=== PATIENT | female | born 1985 | race Caucasian/White ===

== ENCOUNTER → 2024-05-21 13:42 | Outpatient (BNVA) | payer MEDICAID, SELFPAY | PROVIDERS: Visit Provider Nurse Practitioner Women's Health | DX: Z34.90 Encounter for supervision of normal pregnancy, unspecified, unspecified trimester (principal) | CPT/HCPCS: 80307; 84315; 87086 ==

== ENCOUNTER → 2024-05-25 14:08 | Outpatient (BNVA) | payer MEDICAID, SELFPAY | PROVIDERS: Visit Provider Nurse Practitioner Women's Health | DX: Z36.2 Encounter for other antenatal screening follow-up (principal); O09.512 Supervision of elderly primigravida, second trimester; Z3A.25 25 weeks gestation of pregnancy; O24.419 Gestational diabetes mellitus in pregnancy, unspecified control | CPT/HCPCS: 76805 ==

== ENCOUNTER → 2024-06-03 16:19 | Outpatient (BNVA) | payer MEDICAID, SELFPAY | PROVIDERS: Visit Provider Obstetrics & Gynecology | DX: O09.522 Supervision of elderly multigravida, second trimester (principal); Z01.419 Encounter for gynecological examination (general) (routine) without abnormal findings | CPT/HCPCS: 84315; 87624 ==

== ENCOUNTER → 2024-06-22 08:36 | Outpatient (BNVA) | payer MEDICAID, SELFPAY | PROVIDERS: Visit Provider Obstetrics & Gynecology | DX: O09.299 Supervision of pregnancy with other poor reproductive or obstetric history, unspecified trimester (principal); Z86.32 Personal history of gestational diabetes | CPT/HCPCS: 82950 ==

== ENCOUNTER → 2024-07-06 08:17 | Outpatient (BNVA) | payer MEDICAID, SELFPAY | PROVIDERS: Visit Provider Nurse Practitioner Women's Health | DX: O09.522 Supervision of elderly multigravida, second trimester (principal); B37.9 Candidiasis, unspecified | CPT/HCPCS: 81000; 85025; 87077; 87086; 87184 ==

== ENCOUNTER → 2024-07-15 10:00 | Outpatient (BNVA) | payer MEDICAID, SELFPAY | PROVIDERS: Visit Provider Obstetrics & Gynecology | DX: O09.513 Supervision of elderly primigravida, third trimester (principal) | CPT/HCPCS: 81000 ==

== ENCOUNTER 2024-07-29 12:30 | Outpatient (CLI) | payer MEDICAID, SELFPAY ==
[2024-07-29 12:30] VITALS: BMI 24.8
[2024-07-29 12:43] VITALS: BP 124/76; PULSE 75
[2024-07-29 12:59] VITALS: BP 120/68; PULSE 76
== END 2024-07-29 13:13 | disposition home or self-care (01) ==
LOC: OPOB 12:37 → OBGYN 12:38
PROVIDERS: Visit Provider Obstetrics & Gynecology
DX: O24.419 Gestational diabetes mellitus in pregnancy, unspecified control (principal); Z3A.00 Weeks of gestation of pregnancy not specified
CPT/HCPCS: 59025; 84315; 86850; 86900; 87086

== ENCOUNTER → 2024-08-17 11:07 | Outpatient (BNVA) | payer MEDICAID, SELFPAY | PROVIDERS: Visit Provider Nurse Practitioner Women's Health | DX: O09.513 Supervision of elderly primigravida, third trimester (principal) | CPT/HCPCS: 76816 ==

== ENCOUNTER 2024-08-17 12:03 | Outpatient (CLI) | payer MEDICAID, SELFPAY ==
[2024-08-17 12:03] VITALS: BMI 25.8
[2024-08-17 12:19] VITALS: BP 135/74; PULSE 66
[2024-08-17 12:35] VITALS: BP 126/72; PULSE 71
== END 2024-08-17 12:45 | disposition home or self-care (01) ==
LOC: OPOB 12:08 → OBGYN 12:09
PROVIDERS: Visit Provider Obstetrics & Gynecology
DX: O24.419 Gestational diabetes mellitus in pregnancy, unspecified control (principal); Z3A.00 Weeks of gestation of pregnancy not specified
CPT/HCPCS: 59025; 84315; 87081

== ENCOUNTER 2024-08-21 11:40 | Outpatient (CLI) | payer MEDICAID, SELFPAY ==
[2024-08-21 11:37] VITALS: RESP 17; BMI 25.2
[2024-08-21 11:49] VITALS: BP 128/80; PULSE 62
[2024-08-21 12:08] VITALS: BP 125/73; PULSE 70
[2024-08-21 12:22] VITALS: BP 119/72; PULSE 62
[2024-08-21 12:37] VITALS: BP 122/76; PULSE 66
[2024-08-21 12:40] VITALS: BP 122/76; PULSE 66; O2SAT 98
== END 2024-08-21 12:40 | disposition home or self-care (01) ==
LOC: OPOB 11:41 → OBGYN 11:46
PROVIDERS: Visit Provider Obstetrics & Gynecology
DX: O24.419 Gestational diabetes mellitus in pregnancy, unspecified control (principal); Z3A.00 Weeks of gestation of pregnancy not specified
CPT/HCPCS: 59025; 99211

== ENCOUNTER 2024-08-26 14:13 | Outpatient (CLI) | payer MEDICAID, SELFPAY ==
[2024-08-26 14:06] VITALS: BMI 25.8
[2024-08-26 14:22] VITALS: BP 134/76; PULSE 83
[2024-08-26 14:38] VITALS: BP 122/75; PULSE 88
[2024-08-26 14:53] VITALS: BP 122/75; PULSE 98
[2024-08-26 15:12] VITALS: BP 122/75; PULSE 98; O2SAT 98
== END 2024-08-26 15:12 ==
LOC: OPOB 14:13 → OBGYN 14:14
PROVIDERS: Visit Provider Obstetrics & Gynecology
DX: O09.529 Supervision of elderly multigravida, unspecified trimester (principal); Z3A.00 Weeks of gestation of pregnancy not specified
CPT/HCPCS: 59025; 84315

== ENCOUNTER → 2024-09-04 16:47 | Outpatient (BNVA) | payer MEDICAID, SELFPAY | PROVIDERS: Visit Provider Obstetrics & Gynecology | DX: O90.81 Anemia of the puerperium (principal) | CPT/HCPCS: 85025 ==